=== PATIENT | female | born 2000 | race Caucasian/White ===

== ENCOUNTER 2020-11-28 03:03 | Observation (INO) | payer OTHER, SELFPAY ==
[2020-11-28 03:55] LABS: Absolute Lymphocytes (CBC) 1.6 K/uL (0.7-4.9); Basophils % 0.9 % (0-1.3); Hematocrit 36.2 % (36.0-45.0); Lymphocytes % 20.1 % (15.3-44.8); RBC Red Blood Cell Count 3.87 M/uL (3.86-4.86)
[2020-11-28] MEDS ORDERED: CEFAZOLIN SODIUM 1 GM/VIAL ONE (04:03)
[2020-11-28] MEDS ORDERED: TETANUS & DIPHTHERIA TOX,ADULT 0.5 ML VIAL ONE (04:03)
[2020-11-28] MEDS ORDERED: NA CHLORIDE 0.9% 1,000 ML ONE (04:04)
[2020-11-28 04:11] LABS: Albumin 4.5 g/dL (3.4-5.0); Bilirubin Direct 0.2 mg/dL (0-0.2); Bilirubin Total 0.7 mg/dL (0.2-1.0); Potassium 3.5 mmol/L (3.5-5.1); Protein, Total 7.9 g/dL (6.4-8.2)
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
[2020-11-28] MEDS ORDERED: MORPHINE 2 MG/ML SYR IV PRN (07:12)
[2020-11-28] MEDS ORDERED: ACETAMINOPHEN 500 MG TAB PO PRN (07:12)
[2020-11-28] MEDS ORDERED: ONDANSETRON 4 MG/2 ML VIAL IV PRN (07:12)
[2020-11-28] MEDS ORDERED: D5 0.45 NS 1,000 ML IV SCH (07:12)
--- NOTE | 2020-11-28 07:52 | RAD REPORT ---
EXAM DESCRIPTION: Irineo Single View11/28/2020 3:55 am CLINICAL HISTORY: Cough COMPARISON: none FINDINGS: The lungs appear clear of acute infiltrate. The heart is normal size IMPRESSION: No acute abnormalities displayed
--- NOTE | 2020-11-28 07:54 | RAD REPORT ---
EXAM DESCRIPTION: RAD - Shoulder Left 2 View - 11/28/2020 4:54 am CLINICAL HISTORY: Left shoulder pain FINDINGS: No fracture or dislocation is seen.
[2020-11-28] MEDS ORDERED: Ringers Lactate 1,000 ML IV ONE (08:28)
[2020-11-28 09:03] LABS: Barbiturates NEGATIVE (NEGATIVE); Benzodiazepines POSITIVE (NEGATIVE); Cocaine POSITIVE (NEGATIVE); METHAMPHETAM NEGATIVE (NEGATIVE); Methadone NEGATIVE (NEGATIVE); Opiates NEGATIVE (NEGATIVE); Phencyclidine NEGATIVE (NEGATIVE); THC Cannibis POSITIVE (NEGATIVE)
[2020-11-28] MEDS: LIDOCAINE 1.5% W/EPI AMP 5 ML ONE ×2 (11:44→12:12)
[2020-11-28] MEDS ORDERED: FLUMAZENIL 0.1 MG/ML (5 mL VIAL) IV ONE (11:46)
[2020-11-28] MEDS ORDERED: Mastisol Adhesive Liq ONE (11:55)
[2020-11-28] MEDS ORDERED: FENTANYL CITR 100 MCG/2 ML ONE (12:09)
[2020-11-28] MEDS ORDERED: propofoL 200 MG/20 ML VIAL IV ONE (12:09)
[2020-11-28] MEDS ORDERED: LIDOCAINE 1% MPF 5 ML VIAL ONE (12:10)
[2020-11-28] MEDS ORDERED: ROCURONIUM 50 MG/5 ML VIAL IV ONE (12:10)
[2020-11-28] MEDS ORDERED: LIDOCAINE JELLY 2%- 5 ML TUBE ONE (12:30)
[2020-11-28] MEDS: OXYMETAZOLINE HCL 0.05% 15ML NAS ONE ×2 (12:30→12:45)
[2020-11-28] MEDS ORDERED: LANO/MINERAL OIL/PETRO 3.5 GM ONE (12:36)
[2020-11-28] MEDS ORDERED: dexAMETHasone 10 MG/ML VIAL ONE (12:50)
[2020-11-28] MEDS ORDERED: ONDANSETRON 4 MG/2 ML VIAL ONE (12:56)
[2020-11-28] MEDS ORDERED: SUCCINYLCHOLINE 20 MG/ML (10 ML) IV ONE (13:32)
[2020-11-28] MEDS ORDERED: IBUPROFEN 200 MG TAB PO ONE (15:43)
[2020-11-28] MEDS ORDERED: IBUPROFEN 400 MG TAB ONE (15:43)
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
[2020-11-28 16:19] VITALS: TEMP 98.3
[2020-11-28 16:25] VITALS: BP 95/65; O2SAT 100
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
== END 2020-11-28 16:10 | disposition home or self-care (01) ==
LOC: ER 03:03 → ERHOLD 07:24
PROVIDERS: ADMIT Otolaryngology; ATTEND Otolaryngology
PROC: 0NSBXZZ Reposition Nasal Bone, External Approach (ICD-10-PCS; principal; 2020-11-28 11:15)
PROC: 0HQ1XZZ Repair Face Skin, External Approach (ICD-10-PCS; 2020-11-28 11:15)
DX: S02.2XXA Fracture of nasal bones, initial encounter for closed fracture (principal); S01.21XA Laceration without foreign body of nose, initial encounter; F13.129 Sedative, hypnotic or anxiolytic abuse with intoxication, unspecified; F14.129 Cocaine abuse with intoxication, unspecified; F12.129 Cannabis abuse with intoxication, unspecified; I10 Essential (primary) hypertension; Z23 Encounter for immunization; V47.5XXA Car driver injured in collision with fixed or stationary object in traffic accident, initial encounter
CPT/HCPCS: 36415; 70450; 70486; 71045; 71260; 72125; 74177; 76377; 80048; 80076; 80307; 80320; 83690; 84703; 85025; 86850; 86900; 86901; 90471; 90714; 96361; 96365; 99285; G0390; J0330; J0690; J1100; J2405; J2704; J3010; J7030; J7120; Q9967

== ENCOUNTER 2021-08-25 19:01 | Emergency (ER) | payer SELFPAY ==
--- NOTE | 2021-08-25 20:11 | ER ---
Nurse's Notes [facility] Name: Shanta Mixon Age: 21 yrs Sex: Female : 2000 Arrival Date: 08/25/2021 Time: 19:03 Bed Waiting Private MD: Diagnosis: ED Course: 08/25 19:03 Patient arrived in ED. ds1 20:01 Laila Pagan FNP-C is PSYCHIATRICP. felisa 20:01 Matty Amezquita MD is Attending Physician. kb Administered Medications: No medications were administered Outcome: 20:10 Patient left the ED. wg 20:12 Patient left the ED. kb Signatures: Laila Pagan FNP-C FNP-Ckb Sanford, Demi ds1 Jerrod Kingsley, KATHRYN wg
--- NOTE | 2021-08-25 20:13 | EDPHYS ---
Physician Documentation [facility] Name: Shanta Mixon Age: 21 yrs Sex: Female : 2000 Arrival Date: 08/25/2021 Time: 19:03 Bed Waiting Private MD: ED Physician MDM: 08/25 20:12 Medical screening is not applicable. kb Administered Medications: No medications were administered Disposition Summary: 08/25/21 20:09 Eloped Disposition: Before Triage wg Reason: wait time wg Signatures: Laila Pagan, ERIS PEREZ-Jerrod Andrade, RN wg
== END 2021-08-25 20:12 | disposition left against medical advice (07) ==
LOC: ER 19:01
DX: Z02.9 Encounter for administrative examinations, unspecified (principal)